=== PATIENT | female | born 1990 | race Caucasian/White ===

== ENCOUNTER 2020-07-26 18:49 | Emergency (ER) | payer MEDICAID, OTHER ==
[~2020-07-26] VITALS: Ht 172.7 cm; Wt 125.5 kg
[~2020-07-26 18:49] MED LIST: ALBU6.7H9 INH; METO-292 PO; PREN-125 PO
[2020-07-26 19:30] LABS: BASOPHILS % (AUTO) 0.4 % (0-1); EOSINOPHILS # (AUTO) 0.3 X10'3 (0-0.9); EOSINOPHILS % (AUTO) 2.5 % (0-6); HEMATOCRIT 45.4 % (35.0-45.0); HEMOGLOBIN 15.8 g/dl (12.0-16.0); LYMPHOCYTES # (AUTO) 1.9 X10'3 (1.1-4.8); LYMPHOCYTES % (AUTO) 18.8 % (21-51); MEAN CORPUSCULAR HEMOGLOBIN 31.2 PG (27.0-31.0); MEAN CORPUSCULAR HGB CONC 34.8 g/dL (33.0-36.5); MEAN CORPUSCULAR VOLUME 89.7 FL (78-98); MEAN PLATELET VOLUME 7.3 FL (7.4-10.4); MONOCYTES # (AUTO) 0.4 X10'3 (0-0.9); MONOCYTES % (AUTO) 3.9 % (2-12); NEUTROPHILS # (AUTO) 7.6 X10'3 (1.8-7.7); NEUTROPHILS % (AUTO) 74.4 % (42-75); PLATELET COUNT 325 X10'3 (140-440); RED BLOOD COUNT 5.06 X10'6 (4.20-5.60); RED CELL DISTRIBUTION WIDTH 13.5 % (11.5-14.5); WHITE BLOOD COUNT 10.3 X10'3 (4.5-11.0)
[2020-07-26 19:36] LABS: CLARITY,URINE CLEAR (Clear); COLOR,URINE YELLOW (Yellow); GLUCOSE, URINE NEGATIVE (Neg); KETONES,URINE NEGATIVE (Neg); LEUKOCYTE ESTERASE ,URINE NEGATIVE (Neg); NITRITES, URINE NEGATIVE (Neg); OCCULT BLOOD,URINE NEGATIVE (Neg); PROTEIN,URINE NEGATIVE (Neg); UA COLLECTION TYPE CLN CATCH MIDSTREAM; UROBILINOGEN,URINE 0.2 E.U/dL (0.2-1.0)
[2020-07-26 19:37] LABS: URINE HCG NEGATIVE (NEG)
[2020-07-26 19:43] LABS: ALANINE AMINOTRANSFERASE 100 U/L (12-78); ALBUMIN 3.9 G/DL (3.4-5.0); ALKALINE PHOSPHATASE 107 IU/L (46-116); ANION GAP 11 (8-16); ASPARTATE AMINO TRANSFERASE 47 U/L (10-37); BILIRUBIN,TOTAL 0.3 MG/DL (0.1-1.0); BLOOD UREA NITROGEN 10 MG/DL (7-18); BUN/CREATININE RATIO 13.2 (6.6-38.0); CALCIUM 9.5 MG/DL (8.5-10.1); CHLORIDE 105 MMOL/L (99-107); CREATININE 0.76 MG/DL (0.40-0.90); GLUCOSE 103 MG/DL (70-104); LIPASE 81 U/L (73-393); POTASSIUM 4.1 MMOL/L (3.5-5.1); SODIUM 143 MMOL/L (135-145); TOTAL CARBON DIOXIDE 26.9 MMOL/L (24-32); TOTAL PROTEIN 7.9 G/DL (6.4-8.2); eGFR 90 ML/MIN
[2020-07-26] MEDS ORDERED: ondansetron 4mg rapidly disintigrating tab PO ONE (20:20)
[2020-07-26] MEDS ORDERED: ketorolac trometh inj. 60 MG/2 ML VIAL IM ONE (20:20)
[2020-07-26] MEDS ORDERED: HYDROcodone/acetaminophen 5mg/325mg tablet PO ONE (20:20)
[2020-07-26 21:56] VITALS: BP 148/96
== END 2020-07-26 22:00 | disposition home or self-care (01) ==
LOC: ER 18:50
DX: R10.2 Pelvic and perineal pain (principal); R10.30 Lower abdominal pain, unspecified; M54.5 Low back pain; R11.2 Nausea with vomiting, unspecified; E78.00 Pure hypercholesterolemia, unspecified; I10 Essential (primary) hypertension; J45.909 Unspecified asthma, uncomplicated; K21.9 Gastro-esophageal reflux disease without esophagitis; G89.29 Other chronic pain; E66.01 Morbid (severe) obesity due to excess calories; Z68.41 Body mass index [BMI] 40.0-44.9, adult; Z87.11 Personal history of peptic ulcer disease; Z87.442 Personal history of urinary calculi; Z88.0 Allergy status to penicillin; Z88.2 Allergy status to sulfonamides; Z88.8 Allergy status to other drugs, medicaments and biological substances; Z91.040 Latex allergy status; Z79.899 Other long term (current) drug therapy
CPT/HCPCS: 36415; 76856; 80053; 81003; 81025; 83690; 85025; 93976; 96372; 99284; J1885

== ENCOUNTER 2020-08-21 18:59 | Emergency (ER) | payer MEDICAID, OTHER ==
[~2020-08-21] VITALS: Ht 172.7 cm; Wt 121.0 kg
[2020-08-21 19:02] VITALS: BP 151/91
[2020-08-21] MEDS ORDERED: acetaminophen 325mg tablet PO ONE (19:10)
[2020-08-21] MEDS ORDERED: TETanus/Pertussis (Acell)/Diphther VAC/PF (Tdap-Adult) 0.5ml syringe IMVAC ONE (19:10)
[2020-08-21] MEDS ORDERED: bacitracin 15gm ointment TP ONE (19:15)
[2020-08-21] MEDS ORDERED: BACI28OI9 TP (19:18)
== END 2020-08-21 19:36 | disposition home or self-care (01) ==
LOC: ER 19:00
DX: T24.102A Burn of first degree of unspecified site of left lower limb, except ankle and foot, initial encounter (principal); M79.605 Pain in left leg; E78.00 Pure hypercholesterolemia, unspecified; I10 Essential (primary) hypertension; J45.909 Unspecified asthma, uncomplicated; K21.9 Gastro-esophageal reflux disease without esophagitis; G89.29 Other chronic pain; F41.9 Anxiety disorder, unspecified; F32.9 Major depressive disorder, single episode, unspecified; Z20.3 Contact with and (suspected) exposure to rabies; Z87.11 Personal history of peptic ulcer disease; Z87.442 Personal history of urinary calculi; Z87.440 Personal history of urinary (tract) infections; Z88.0 Allergy status to penicillin; Z88.1 Allergy status to other antibiotic agents; Z88.8 Allergy status to other drugs, medicaments and biological substances; Z91.040 Latex allergy status; Z79.2 Long term (current) use of antibiotics; Z79.899 Other long term (current) drug therapy; X58.XXXA Exposure to other specified factors, initial encounter; Y93.89 Activity, other specified; Y92.89 Other specified places as the place of occurrence of the external cause; Y99.8 Other external cause status
CPT/HCPCS: 16020; 90471; 90715; 99283

== ENCOUNTER 2021-02-09 13:32 | Emergency (ER) | payer MEDICAID ==
[~2021-02-09] VITALS: Ht 172.7 cm; Wt 116.2 kg
[~2021-02-09 13:32] MED LIST changes: +BACI28OI9 TP
[2021-02-09 19:24] VITALS: BP 135/88
== END 2021-02-09 20:39 | disposition home or self-care (01) ==
LOC: ER 13:32
DX: S60.462A Insect bite (nonvenomous) of right middle finger, initial encounter (principal); G43.909 Migraine, unspecified, not intractable, without status migrainosus; E78.00 Pure hypercholesterolemia, unspecified; I10 Essential (primary) hypertension; J45.909 Unspecified asthma, uncomplicated; K21.9 Gastro-esophageal reflux disease without esophagitis; G89.29 Other chronic pain; F41.9 Anxiety disorder, unspecified; F32.9 Major depressive disorder, single episode, unspecified; Z87.11 Personal history of peptic ulcer disease; Z87.442 Personal history of urinary calculi; Z87.440 Personal history of urinary (tract) infections; Z91.040 Latex allergy status; Z88.0 Allergy status to penicillin; Z88.8 Allergy status to other drugs, medicaments and biological substances; Z88.1 Allergy status to other antibiotic agents; Z79.2 Long term (current) use of antibiotics; Z79.899 Other long term (current) drug therapy; W57.XXXA Bitten or stung by nonvenomous insect and other nonvenomous arthropods, initial encounter; Y93.89 Activity, other specified; Y92.89 Other specified places as the place of occurrence of the external cause; Y99.8 Other external cause status
CPT/HCPCS: 99281

== ENCOUNTER 2021-04-08 15:01 | Emergency (ER) | payer MEDICAID ==
[~2021-04-08] VITALS: Ht 172.7 cm; Wt 118.5 kg
[2021-04-08 15:08] VITALS: BP 158/99
== END 2021-04-08 23:03 | disposition left against medical advice (07) ==
LOC: ER 15:02
DX: R51.9 Headache, unspecified (principal); Z53.21 Procedure and treatment not carried out due to patient leaving prior to being seen by health care provider

== ENCOUNTER 2022-04-13 17:48 | Emergency (ER) | payer MEDICAID ==
[~2022-04-13 17:48] MED LIST changes: +ALBU6.7H14 INH; -ALBU6.7H9 INH
[2022-04-13 17:54] VITALS: BP 161/110
[2022-04-13] MEDS ORDERED: HYDR-3972 PO (20:07)
[2022-04-13] MEDS ORDERED: HYDROcodone/acetaminophen 10/325mg tab PO ONE (20:15)
== END 2022-04-13 20:56 | disposition home or self-care (01) ==
LOC: ER 17:48
DX: S83.005A Unspecified dislocation of left patella, initial encounter (principal); I10 Essential (primary) hypertension; J45.909 Unspecified asthma, uncomplicated; E78.00 Pure hypercholesterolemia, unspecified; G89.29 Other chronic pain; M54.9 Dorsalgia, unspecified; F41.9 Anxiety disorder, unspecified; Z91.040 Latex allergy status; Z88.0 Allergy status to penicillin; Z79.899 Other long term (current) drug therapy; W19.XXXA Unspecified fall, initial encounter; Y93.89 Activity, other specified; Y92.89 Other specified places as the place of occurrence of the external cause; Y99.8 Other external cause status
CPT/HCPCS: 29505; 73564; 99284

== ENCOUNTER 2023-02-20 11:50 | Emergency (ER) | payer MEDICAID ==
[~2023-02-20] VITALS: Ht 175.3 cm; Wt 120.4 kg
[2023-02-20 12:54] VITALS: PULSE 75; O2SAT 96
[2023-02-20] MEDS ORDERED: ketorolac tromethamine 15mg/ml inj. IM ONE (15:00)
[2023-02-20] MEDS ORDERED: CEPH-585 PO (15:04)
[2023-02-20] MEDS ORDERED: SULF1TAB49 PO (15:04)
[2023-02-20] MEDS ORDERED: ketorolac trometh. 30mg/ml inj. IM ONE (15:15)
[2023-02-20 15:25] VITALS: BP 138/101; TEMP 98.6
[2023-02-20 15:27] VITALS: RESP 20
== END 2023-02-20 15:28 | disposition home or self-care (01) ==
LOC: ER 11:51
DX: L03.116 Cellulitis of left lower limb (principal); E78.00 Pure hypercholesterolemia, unspecified; I10 Essential (primary) hypertension; J45.909 Unspecified asthma, uncomplicated; K21.9 Gastro-esophageal reflux disease without esophagitis; G89.29 Other chronic pain; F41.9 Anxiety disorder, unspecified; F32.9 Major depressive disorder, single episode, unspecified; Z87.442 Personal history of urinary calculi; Z88.0 Allergy status to penicillin; Z91.040 Latex allergy status; Z88.8 Allergy status to other drugs, medicaments and biological substances; Z79.899 Other long term (current) drug therapy
CPT/HCPCS: 96372; 99283; J1885

== ENCOUNTER 2024-08-25 16:47 | Emergency (ER) | payer MEDICAID ==
[~2024-08-25] VITALS: Ht 170.2 cm; Wt 107.1 kg
[2024-08-25] MEDS ORDERED: PRED20TA PO (18:24)
[2024-08-25] MEDS: dexamethasone sod phosphate 10mg/ml inj IM STA (18:30)
[2024-08-25 18:38] VITALS: BP 150/70; PULSE 80; RESP 18; TEMP 98.9; O2SAT 99
== END 2024-08-25 18:40 | disposition home or self-care (01) ==
LOC: ER 16:48
DX: L23.7 Allergic contact dermatitis due to plants, except food (principal); J45.909 Unspecified asthma, uncomplicated; I10 Essential (primary) hypertension; E78.00 Pure hypercholesterolemia, unspecified; K21.9 Gastro-esophageal reflux disease without esophagitis; F32.A Depression, unspecified; F41.9 Anxiety disorder, unspecified; Z88.0 Allergy status to penicillin; Z88.8 Allergy status to other drugs, medicaments and biological substances; Z88.1 Allergy status to other antibiotic agents
CPT/HCPCS: 96372; 99283; J1100

== ENCOUNTER 2024-09-25 17:49 | Emergency (ER) | payer MEDICAID ==
[~2024-09-25] VITALS: Ht 170.2 cm; Wt 105.7 kg
[2024-09-25 18:16] LABS: BILIRUBIN,URINE SMALL (Neg); CLARITY,URINE SLIGHTLY CLOUDY (Clear); COLOR,URINE YELLOW (Yellow); GLUCOSE, URINE NEGATIVE (Neg); KETONES,URINE 40 mg/dl (Neg); LEUKOCYTE ESTERASE ,URINE NEGATIVE (Neg); NITRITES, URINE NEGATIVE (Neg); OCCULT BLOOD,URINE NEGATIVE (Neg); PH,URINE 5.5 (4.8-8.0); PROTEIN,URINE 30 mg/dl (Neg); UROBILINOGEN,URINE 0.2 E.U/dL (0.2-1.0)
[2024-09-25 18:19] LABS: URINE HCG NEGATIVE (NEG)
[2024-09-25 18:30] LABS: UA COLLECTION TYPE CLN CATCH MIDSTREAM
[2024-09-25 18:31] LABS: WBC,URINE 0-4 /HPF (0-4)
[2024-09-25 18:32] LABS: AMORPHOUS URATES 2+; BACTERIA,URINE FEW /HPF (Neg); MUCUS STRANDS FEW /LPF (Neg); RBC,URINE NONE SEEN /HPF (0-2); SQUAMOUS EPITHELIAL CELL,UR FEW /LPF (FEW)
[2024-09-25] MEDS: dexamethasone sod phosphate 10mg/ml inj IM ONE (18:49)
[2024-09-25] MEDS ORDERED: butalbital 50MG/acetaminophen 300MG/caffeine 40MG (Fioricet) CAPSULE PO ONE (19:00)
[2024-09-25] MEDS: butalbital 50MG/acetaminophen 300MG/caffeine 40MG (Fioricet) CAPSULE PO ONE (19:16)
[2024-09-25 19:20] VITALS: BP 130/96; PULSE 90; RESP 16; TEMP 98.2; O2SAT 99
== END 2024-09-25 19:23 | disposition home or self-care (01) ==
LOC: ER 17:49
DX: L23.7 Allergic contact dermatitis due to plants, except food (principal); R51.9 Headache, unspecified; M62.830 Muscle spasm of back; J45.909 Unspecified asthma, uncomplicated; I10 Essential (primary) hypertension; E78.00 Pure hypercholesterolemia, unspecified; G89.29 Other chronic pain; M54.9 Dorsalgia, unspecified; K21.9 Gastro-esophageal reflux disease without esophagitis; F41.9 Anxiety disorder, unspecified; F32.A Depression, unspecified; Z88.0 Allergy status to penicillin; Z88.1 Allergy status to other antibiotic agents; Z88.8 Allergy status to other drugs, medicaments and biological substances; Z91.040 Latex allergy status; Z79.899 Other long term (current) drug therapy; Z87.442 Personal history of urinary calculi
CPT/HCPCS: 81001; 81025; 96372; 99283; J1100

== ENCOUNTER 2024-09-26 04:33 | Emergency (ER) | payer MEDICAID ==
[~2024-09-26] VITALS: Ht 170.2 cm; Wt 100.0 kg
[2024-09-26 04:36] VITALS: BP 164/113; PULSE 81; RESP 18; TEMP 98.5; O2SAT 100
[2024-09-26] MEDS: ondansetron 4mg rapidly disintigrating tab PO ONE ×2 (04:45→07:46)
[2024-09-26] MEDS: ketorolac trometh 30MG/ML vial 30 MG/ML VIAL IM ONE (07:48)
[2024-09-26 07:50] LABS: URINE HCG NEGATIVE (NEG)
[2024-09-26 07:51] LABS: BILIRUBIN,URINE MODERATE (Neg); CLARITY,URINE CLOUDY (Clear); COLOR,URINE YELLOW (Yellow); GLUCOSE, URINE NEGATIVE (Neg); KETONES,URINE >=80 mg/dl (Neg); LEUKOCYTE ESTERASE ,URINE NEGATIVE (Neg); NITRITES, URINE NEGATIVE (Neg); OCCULT BLOOD,URINE NEGATIVE (Neg); PROTEIN,URINE 30 mg/dl (Neg); UROBILINOGEN,URINE 0.2 E.U/dL (0.2-1.0)
[2024-09-26 07:58] LABS: UA COLLECTION TYPE NON-SPECIFIED
[2024-09-26 08:07] LABS: BACTERIA,URINE FEW /HPF (Neg); MUCUS STRANDS MODERATE /LPF (Neg); RBC,URINE NONE SEEN /HPF (0-2); SQUAMOUS EPITHELIAL CELL,UR MANY /LPF (FEW); WBC,URINE 0-4 /HPF (0-4)
== END 2024-09-26 09:52 | disposition home or self-care (01) ==
LOC: ER 04:34
DX: R51.9 Headache, unspecified (principal); I10 Essential (primary) hypertension; J45.909 Unspecified asthma, uncomplicated; E78.00 Pure hypercholesterolemia, unspecified; G89.29 Other chronic pain; M54.9 Dorsalgia, unspecified; F41.9 Anxiety disorder, unspecified; F32.A Depression, unspecified; K21.9 Gastro-esophageal reflux disease without esophagitis; Z88.8 Allergy status to other drugs, medicaments and biological substances; Z88.0 Allergy status to penicillin; Z91.040 Latex allergy status; Z79.899 Other long term (current) drug therapy; Z87.442 Personal history of urinary calculi
CPT/HCPCS: 81001; 81025; 96372; 99283; J1885

== ENCOUNTER 2024-10-04 20:55 | Emergency (ER) | payer MEDICAID ==
[~2024-10-04] VITALS: Ht 170.2 cm; Wt 95.6 kg
[2024-10-04] MEDS ORDERED: ketorolac trometh 15mg/ml vial 15 MG/ML ML IM ONE (22:10)
[2024-10-04] MEDS: ketorolac trometh 30MG/ML vial 30 MG/ML VIAL IM ONE (22:20)
[2024-10-04] MEDS: diazepam 5mg tablet PO ONE (22:20)
[2024-10-04 22:21] LABS: URINE HCG NEGATIVE (NEG)
[2024-10-04 23:36] VITALS: BP 165/80; PULSE 86; RESP 18; TEMP 98.6; O2SAT 99
== END 2024-10-04 23:37 | disposition home or self-care (01) ==
LOC: ER 20:56
DX: R51.9 Headache, unspecified (principal); M79.7 Fibromyalgia; F41.9 Anxiety disorder, unspecified; E78.00 Pure hypercholesterolemia, unspecified; I10 Essential (primary) hypertension; J45.909 Unspecified asthma, uncomplicated; F32.A Depression, unspecified; K21.9 Gastro-esophageal reflux disease without esophagitis; F17.210 Nicotine dependence, cigarettes, uncomplicated; G89.29 Other chronic pain; M54.9 Dorsalgia, unspecified; Z88.0 Allergy status to penicillin; Z88.1 Allergy status to other antibiotic agents; Z88.8 Allergy status to other drugs, medicaments and biological substances; Z91.040 Latex allergy status; Z79.899 Other long term (current) drug therapy; Z87.442 Personal history of urinary calculi
CPT/HCPCS: 81025; 96372; 99283; J1885

== ENCOUNTER 2024-10-16 22:05 | Emergency (ER) | payer MEDICAID ==
[~2024-10-16] VITALS: Ht 177.8 cm; Wt 106.6 kg
--- NOTE | 2024-10-16 22:09 | Physician Documentation ---
History of Present Illness ~ Stated Complaint: CHEST PAIN Time Seen by MD: 22:08 Primary Medical Doctor: ROSALBA GUZMÁN 33-year-old female with a history of complicated migraines and reported anxiety who presents with a headache and chest pain She tells me that she was feeling normal this morning. She went to the car show and was outside all day. She then developed multiple symptoms including a headache, photophobia, nausea, and central chest pressure. Some of this feels similar to the previous migraines. She has not take any medications, states that she normally just takes ibuprofen. She denies any significant shortness of breath. She denies any significant heart history. She arrives by EMS, who reports normal vitals and normal heart racing. They did give nitroglycerin, which seemed to make her headache worse. Medication Reconciliation Allergies: Coded Allergies: latex (Verified Allergy, Mild, itchy, 09/26/24) Penicillins (Unverified Allergy, Unknown, 09/26/24) diphenhydramine HCl (Unverified Allergy, Unknown, 09/26/24) doxycycline (Verified Allergy, Unknown, 09/26/24) Uncoded Allergies: MANGOS (Allergy, Mild, rash, 12/04/14) Scheduled Albuterol Sulfate (Proventil Hfa), 2 PUFFS INH Q6H Bacitracin/Pramoxine/Aloe Vera (Bacitracin Plus Ointment), 28 GM TP BID Metoclopramide HCl (Reglan), Unknown Dose PO DAILY, (Reported) Vit37/Iron/Folic Acid (Prenata Chewable Tablet), 1 EACH PO DAILY, (Reported) Past Medical History Past Medical History: High Cholesterol, Hypertension, Asthma, Constipation, GERD, Peptic Ulcer Disease, Kidney Stones, UTI, Chronic Back Pain, Anxiety, Depression Past Surgical History: no surgical history Other Past Family History: Asthma, Anxiety, Cardiac "Issues" Alcohol Use: None Drug Use: none Lives with: Family Lives In: Home Occupation: student Review of Systems Constitutional: Denies: fever Respiratory: Reports: cough; Denies: shortness of breath Gastrointestinal: Reports: nausea; Denies: vomiting Neurological: Reports: headache Physical Exam Physical Exam General: This is a nontoxic-appearing young female lying in bed with her eyes closed HEENT: Atraumatic, pupils are equal, oropharynx is moist Heart: Mild tachycardic, appears regular Lungs: Clear breath sounds bilateral, normal work of breathing, normal oxygen saturation on room air Abdomen: Soft, nondistended, nontender all quadrants Extremities: Warm and well-perfused Neuro: Alert and oriented, no focal deficits Psychiatric: Appears mildly anxious but is cooperative with exam Progress Results/Orders Results/Orders Orders - BEREKET GAONA MD Chest,Single View (10/16/24 22:12) Monitor (10/16/24 22:12) Saline Lock (10/16/24 22:12) Oxygen (10/16/24 22:12) Completed Orders - BEREKET GAONA MD Chest,Single View (10/16/24 22:12) Cbc/Diff (10/16/24 22:12) PBNP (10/16/24 22:12) Electrocardiogram (10/16/24 22:12) CMP (10/16/24 22:12) Hs Troponin I W Calculations (10/16/24 22:12) Ketorolac Trometh 15mg/Ml Vial (Toradol (10/16/24 22:15) Normal Saline 1000ml (Sodium Chloride 10 (10/16/24 22:15) Diazepam Inj (Valium Inj) (10/16/24 22:15) Medications Received in ER Medications (Trade) Dose Ordered Sig/Gloria Route PRN Reason Start Time Stop Time Status Last Admin Dose Admin Sodium Chloride 1,000 ml @ 1,000 mls/hr ONCE ONCE IV 10/16/24 22:15 10/16/24 23:14 DC 10/16/24 22:33 1,000 MLS/HR (Valium inj) 5 mg ONCE ONCE IV 10/16/24 22:15 10/16/24 22:19 DC 10/16/24 22:33 5 MG Vital Signs 10/16/24 10/16/24 10/16/24 10/16/24 22:07 22:13 22:13 22:19 Temp 98.4 98.4 Pulse 89 99 Resp 20 20 18 B/P (MAP) 165/97 168/100 (122) Pulse Ox 99 99 99 O2 Delivery Room Air* O2 Flow Rate 0 0 0 FiO2 21 21 10/16/24 10/16/24 10/17/24 22:34 23:44 00:56 Temp 98.2 Pulse 68 67 Resp 20 14 16 B/P (MAP) 162/94 (116) 147/81 Pulse Ox 99 100 O2 Flow Rate 0 FiO2 21 Laboratory Tests Test 10/16/24 22:44 White Blood Count 7.1 Red Blood Count 4.41 Hemoglobin 13.8 Hematocrit 39.6 Mean Corpuscular Volume 89.7 Mean Corpuscular Hemoglobin 31.4 H Mean Corpuscular Hemoglobin Concent 35.0 Red Cell Distribution Width 13.7 Platelet Count 280 Mean Platelet Volume 7.1 L Neutrophils (%) (Auto) 76.4 H Lymphocytes (%) (Auto) 19.1 L Monocytes (%) (Auto) 4.2 Eosinophils (%) (Auto) 0.1 Basophils (%) (Auto) 0.2 Neutrophils # (Auto) 5.4 Lymphocytes # (Auto) 1.3 Monocytes # (Auto) 0.3 Eosinophils # (Auto) 0.0 Basophils # (Auto) 0.0 CBC Comment Sodium Level 141 Potassium Level 3.3 L Chloride Level 107 Carbon Dioxide Level 25.9 Anion Gap 8 Blood Urea Nitrogen 7 Creatinine 0.58 Estimated GFR/1.73 m2 > 90 BUN/Creatinine Ratio 12.1 Glucose Level 101 Calcium Level 8.5 Total Bilirubin 0.5 Aspartate Amino Transf (AST/SGOT) 17 Alanine Aminotransferase (ALT/SGPT) 32 Alkaline Phosphatase 93 Troponin I High Sensitivity 8 Pro-B-Type Natriuretic Peptide 134 H Total Protein 6.5 Albumin 3.4 Globulin 3.1 Albumin/Globulin Ratio 1.1 Chemistry Comments EKG/XRAY/CT/US/VASC/MRI EKG : Additional Comment I personally interpreted the EKG and this shows: Sinus rhythm, rate 79, QTC 445, no STEMI or acute ischemic changes Chest X-Ray : Additional Comments I personally reviewed the x-ray, and it shows: No consolidation, normal mediastinum, no significant pulmonary edema Heart Score: Heart Score Response (Comments) Value History N/A 0 EKG Repolarization Disturb 1 Age <45 0 Risk Factors No known risk factors 0 Troponin Normal limit 0 Total 1 Medical Decision Making Differential Dx:Considerations: Include: ROGERS-Cluster, ROGERS-Migraine, ROGERS-Hypertensi ve Additional Comment Chest pain differential includes ACS, PE, costochondritis, reflux Assessment The patient presents with a headache and chest pain. Per her history and exam, this all seems consistent with her chronic migraine type headaches in the past. Her workup was unremarkable including no evidence of ACS. She was given a migraine cocktail with good resolution of her symptoms including her chest pain. I doubt PE, dissection, or other dangerous intra-thoracic process. She was no evidence of pneumonia or other dangerous infection. I do not feel the brain imaging is indicated given her recent reported ER visit with extensive workup for possible stroke and with normal brain imaging at that time. Given her rapid improvement with a migraine cocktail, I do not feel that she requires admission, and she will be discharged with ongoing outpatient management. Departure Time of Disposition: 00:44 Disposition: 01 HOME / SELF CARE / HOMELESS Impression: Primary Impression: Migraine Condition: Improved Discharge Instructions: Chronic Migraine Headache Additional Instructions: Your testing did not show any dangerous problems including your heart testing was normal. No evidence of a heart attack or other dangerous chest problem. Referrals: NO PRIMARY CARE PROVIDER (PCP) Education Educated: Patient Educated regarding: diagnosis, treatment, need for follow up Signature Scribe Signature: kezia Attestation: BEREKET Solano MD Oct 16, 2024 22:09
--- NOTE | 2024-10-16 22:16 | ELECTROCARDIOGRAPH REPORT ---
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 Mika Anthony Measurements Intervals [place] Rate: 79 P: 42 CO: 138 QRS: 31 QRSD: 94 T: 35 QT: 388 QTc: 445 Interpretive Statements Sinus rhythm Low voltage, precordial leads Electronically Signed On 10-19-2024 19:03:[address] Mika Anthony Please click the below link to view image of tracing.
[2024-10-16] MEDS: diazepam inj 5 MG/ML inj. IV ONE (22:33)
[2024-10-16] MEDS: normal saline 1000ml 1,000 ML IV ONE (22:33)
[2024-10-16] MEDS: ketorolac trometh 15mg/ml vial 15 MG/ML ML IV ONE (22:34)
--- NOTE | 2024-10-16 22:34 | RADIOLOGY REPORT ---
CHEST RADIOGRAPH Indication: CP Technique: Single frontal view of the chest was obtained Comparison: None FINDINGS: Lines and Tubes: None Lungs: Clear Pleura: No effusion. No pneumothorax. Cardiomediastinal contours: Unremarkable Bones: Unremarkable IMPRESSION: Clear lungs.
[2024-10-16 23:01] LABS: BASOPHILS % (AUTO) 0.2 % (0-1); EOSINOPHILS % (AUTO) 0.1 % (0-6); HEMATOCRIT 39.6 % (35.0-45.0); HEMOGLOBIN 13.8 g/dl (12.0-16.0); LYMPHOCYTES # (AUTO) 1.3 X10'3 (1.1-4.8); LYMPHOCYTES % (AUTO) 19.1 % (21-51); MEAN CORPUSCULAR HEMOGLOBIN 31.4 PG (27.0-31.0); MEAN CORPUSCULAR VOLUME 89.7 FL (78-98); MEAN PLATELET VOLUME 7.1 FL (7.4-10.4); MONOCYTES # (AUTO) 0.3 X10'3 (0-0.9); MONOCYTES % (AUTO) 4.2 % (2-12); NEUTROPHILS # (AUTO) 5.4 X10'3 (1.8-7.7); NEUTROPHILS % (AUTO) 76.4 % (42-75); PLATELET COUNT 280 X10'3 (140-440); RED BLOOD COUNT 4.41 X10'6 (4.20-5.60); RED CELL DISTRIBUTION WIDTH 13.7 % (11.5-14.5); WHITE BLOOD COUNT 7.1 X10'3 (4.5-11.0)
[2024-10-16 23:05] LABS: ALANINE AMINOTRANSFERASE 32 U/L (12-78); ALBUMIN 3.4 G/DL (3.4-5.0); ALBUMIN/GLOBULIN RATIO 1.1 (1.1-1.5); ALKALINE PHOSPHATASE 93 IU/L (46-116); ANION GAP 8 (8-16); ASPARTATE AMINO TRANSFERASE 17 U/L (10-37); BILIRUBIN,TOTAL 0.5 MG/DL (0.1-1.0); BLOOD UREA NITROGEN 7 MG/DL (7-18); BUN/CREATININE RATIO 12.1 (10.0-20.0); CALCIUM 8.5 MG/DL (8.5-10.1); CHLORIDE 107 MMOL/L (99-107); CREATININE 0.58 MG/DL (0.40-0.90); GLUCOSE 101 MG/DL (70-104); POTASSIUM 3.3 MMOL/L (3.5-5.1); SODIUM 141 MMOL/L (135-145); TOTAL CARBON DIOXIDE 25.9 MMOL/L (24-32); TOTAL PROTEIN 6.5 G/DL (6.4-8.2); eCRCL 149 ML/MIN; eGFR > 90 ML/MIN
[2024-10-16 23:12] LABS: PRO BRAIN NATRIURETIC PEPTIDE 134 PG/ML (0-125)
[2024-10-16 23:44] VITALS: TEMP 98.2
[2024-10-17 00:56] VITALS: BP 147/81; PULSE 67; RESP 16; O2SAT 100
== END 2024-10-17 00:58 | disposition home or self-care (01) ==
LOC: ER 22:05
DX: G43.909 Migraine, unspecified, not intractable, without status migrainosus (principal); F41.9 Anxiety disorder, unspecified; E78.00 Pure hypercholesterolemia, unspecified; I10 Essential (primary) hypertension; J45.909 Unspecified asthma, uncomplicated; F32.A Depression, unspecified; K21.9 Gastro-esophageal reflux disease without esophagitis; G89.29 Other chronic pain; M54.9 Dorsalgia, unspecified; Z86.73 Personal history of transient ischemic attack (TIA), and cerebral infarction without residual deficits; Z88.0 Allergy status to penicillin; Z88.1 Allergy status to other antibiotic agents; Z88.8 Allergy status to other drugs, medicaments and biological substances; Z91.040 Latex allergy status; Z79.899 Other long term (current) drug therapy; Z87.442 Personal history of urinary calculi
CPT/HCPCS: 36415; 71045; 80053; 83880; 84484; 85025; 93005; 96361; 96374; 99285; J3360; J7030

== ENCOUNTER 2025-01-23 21:10 | Emergency (ER) | payer MEDICAID ==
[~2025-01-23] VITALS: Ht 170.2 cm; Wt 109.5 kg
[2025-01-23 21:32] VITALS: TEMP 98.4
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
[2025-01-23 22:54] LABS: MEAN PLATELET VOLUME 7.2 FL (7.4-10.4); RED CELL DISTRIBUTION WIDTH 13.7 % (11.5-14.5)
[2025-01-23 22:59] LABS: CREATININE 0.83 MG/DL (0.40-0.90); TOTAL CARBON DIOXIDE 25.1 MMOL/L (24-32); eCRCL 93 ML/MIN; eGFR 79 ML/MIN
[2025-01-24 00:27] VITALS: BP 122/73; PULSE 61; RESP 16; O2SAT 98
--- NOTE | 2025-01-24 00:29 | RADIOLOGY REPORT ---
CLINICAL INDICATION: trauma TECHNIQUE: 2 views of the right shoulder DI SHOULDER, COMPLETE (MIN 2 VWS) Comparison: None FINDINGS/IMPRESSION: : Assessment limited by lack of orthogonal view. No evidence of acute fracture. Normal osseous mineral ization. No significant degenerative change. Focal hydroxyapatite deposition adjacent to the greater tuberosity at the expected location of the abarca praspinatus insertion, may represent calcific tendinosis. The imaged chest is unremarkable.
--- NOTE | 2025-01-24 08:59 | ELECTROCARDIOGRAPH REPORT ---
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 Mika Anthony Measurements Intervals [place] Rate: 74 P: 52 IN: 135 QRS: 48 QRSD: 90 T: 50 QT: 383 QTc: 425 Interpretive Statements Sinus rhythm Low voltage, precordial leads Electronically Signed On 01-24-2025 19:43:[address] Mika Anthony Please click the below link to view image of tracing.
== END 2025-01-24 00:36 | disposition home or self-care (01) ==
LOC: ER 21:11
DX: S40.011A Contusion of right shoulder, initial encounter (principal); R11.10 Vomiting, unspecified; R42 Dizziness and giddiness; I10 Essential (primary) hypertension; J45.909 Unspecified asthma, uncomplicated; E78.00 Pure hypercholesterolemia, unspecified; Z88.0 Allergy status to penicillin; Z88.1 Allergy status to other antibiotic agents; Z88.8 Allergy status to other drugs, medicaments and biological substances; Z91.040 Latex allergy status; Z87.11 Personal history of peptic ulcer disease; Z87.440 Personal history of urinary (tract) infections; W19.XXXA Unspecified fall, initial encounter; Y93.89 Activity, other specified; Y92.89 Other specified places as the place of occurrence of the external cause; Y99.8 Other external cause status
CPT/HCPCS: 36415; 73030; 80048; 82948; 83735; 85025; 93005; 99285; A4565

== ENCOUNTER 2025-04-12 09:57 | Emergency (ER) | payer MEDICAID ==
[~2025-04-12] VITALS: Ht 170.2 cm; Wt 114.1 kg
[2025-04-12] MEDS: triamcinolone acetonide 40mg/ml inj IM STA (12:04)
--- NOTE | 2025-04-12 12:47 | Physician Documentation ---
History of Present Illness ~ Chief Complaint: Allergic Reaction Stated Complaint: ALLERGIC REACTION Time Seen by MD: 10:15 Primary Medical Doctor: [facility] Mode of Arrival: Ambulatory HPI Patient is seen today with concern for a rash that patient feels might be an allergic reaction to something but she is unsure what. She denies any swelling of her lips or face or throat and denies any stridor or difficulty breathing or shortness of breath or chest pain or abdominal pain or nausea, vomiting, diarrhea. Patient has no other concern or complaint at this time. Medication Reconciliation Allergies: Coded Allergies: latex (Verified Allergy, Mild, itchy, 04/12/25) Penicillins (Unverified Allergy, Unknown, 04/12/25) diphenhydramine HCl (Unverified Allergy, Unknown, 04/12/25) doxycycline (Verified Allergy, Unknown, 04/12/25) Uncoded Allergies: MANGOS (Allergy, Mild, rash, 12/04/14) Scheduled Albuterol Sulfate (Proventil Hfa), 2 PUFFS INH Q6H Bacitracin/Pramoxine/Aloe Vera (Bacitracin Plus Ointment), 28 GM TP BID Metoclopramide HCl (Reglan), Unknown Dose PO DAILY, (Reported) Vit37/Iron/Folic Acid (Prenata Chewable Tablet), 1 EACH PO DAILY, (Reported) Past Medical History Past Medical History: High Cholesterol, Hypertension, Asthma, Constipation, GERD, Peptic Ulcer Disease, Kidney Stones, UTI, Chronic Back Pain, Anxiety, Depression Past Surgical History: no surgical history Other Past Family History: Asthma, Anxiety, Cardiac "Issues" Alcohol Use: None Drug Use: none Lives with: Family Lives In: Home Occupation: student Review of Systems Constitutional: Denies: chills, fever, weakness Eyes: Denies: pain, blurred vision ENT: Denies: ear pain, nose pain, throat pain, mouth pain Respiratory: Denies: cough, shortness of breath Cardiovascular: Denies: chest pain, palpitations Gastrointestinal: Denies: abdominal pain, nausea, vomiting Genitourinary: Denies: burning, dysuria Female Genitalia: Denies: vaginal discharge, pelvic pain Neurological: Denies: headache, dizziness Musculoskeletal: Denies: pain, swelling Integumentary: Denies: rash, lesions Allergic/Immunologic: Denies: hives, itching Hematologic/Lymphatic: Denies: no symptoms reported Psychiatric: Denies: depression, anxiety Physical Exam Vital Signs: Temperature: 97.6, Source: Oral, Heart Rate: 66, Respiratory Rate: 16, BP: 122/67, Pulse Oximetry: 96, Weight: 114.100 Oxygen Flow Rate: 0 Physical Exam General: Awake and Alert, no acute distress. HEENT: Conjunctiva pink, Sclera clear, Mucus Membranes moist. Neck: Supple without masses and tenderness. Resp: Unlabored. Lungs clear to auscultation bilaterally. Heart: Regular Rate and rhythm, normal S1 and S2 without murmur, rub or gallop. Extremities: No cyanosis,clubbing or edema. Skin: Patient on exam does have a wheal and flare type skin rash on her trunk and upper arms and legs. I do not appreciate any purulence or drainage or skin breakdown. Surrounding induration or erythema. Progress Results/Orders Results/Orders Completed Orders - IMANI [place] Triamcinolone Acet 40mg/Ml Inj (Kenalog- (04/12/25 11:51) Medications Received in ER Medications (Trade) Dose Ordered Sig/Gloria Route PRN Reason Start Time Stop Time Status Last Admin Dose Admin (Kenalog-40 inj) 80 mg ONCE STAT IM 04/12/25 11:51 04/12/25 11:52 DC 04/12/25 12:04 80 MG Vital Signs 04/12/25 04/12/25 04/12/25 04/12/25 10:03 11:00 12:00 12:02 Temp 97.6 Pulse 69 69 66 Resp 18 18 16 B/P (MAP) 166/102 128/79 (95) 122/67 (85) Pulse Ox 98 100 96 O2 Flow Rate 0 0 0 Medical Decision Making Additional information obtaine: N/A Findings Patient is seen today with concern for a rash that patient feels might be an allergic reaction to something but she is unsure what. She denies any swelling of her lips or face or throat and denies any stridor or difficulty breathing or shortness of breath or chest pain or abdominal pain or nausea, vomiting, diarrhea. Patient has no other concern or complaint at this time. Patient was given Kenalog 80 mg IM in the ED today. Patient will follow up with primary care in 1-3 days if no better as needed sooner. Return to ED with any worsening, concerning or changing symptoms. Differential Dx:Considerations: Include: Anaphylaxis, Angioedema, Bronchospasm, Contact dermatitis, Drug reaction, Latex allergy Departure Disposition: HOME / SELF CARE / HOMELESS Impression: Primary Impression: Acute allergic reaction Qualified Codes: T78.40XA - Allergy, unspecified, initial encounter Condition: Improved Discharge Instructions: Hives, Ihmk-[id number] Additional Instructions: Patient was given Kenalog 80 mg IM in the ED today. Patient will follow up with primary care in 1-3 days if no better as needed sooner. Return to ED with any worsening, concerning or changing symptoms. Referrals: NO PRIMARY CARE PROVIDER (PCP) Signature Scribe Signature: No scribe Attestation: No scribe IMANI [place] PAC Apr 12, 2025 12:47
[2025-04-12 13:47] VITALS: BP 152/95; PULSE 65; RESP 18; TEMP 97.6; O2SAT 100
== END 2025-04-12 13:45 | disposition home or self-care (01) ==
LOC: ER 09:57
DX: T78.40XA Allergy, unspecified, initial encounter (principal); E78.00 Pure hypercholesterolemia, unspecified; F41.9 Anxiety disorder, unspecified; F32.A Depression, unspecified; I10 Essential (primary) hypertension; K21.9 Gastro-esophageal reflux disease without esophagitis; J45.909 Unspecified asthma, uncomplicated; Z88.0 Allergy status to penicillin; Z88.1 Allergy status to other antibiotic agents; Z88.8 Allergy status to other drugs, medicaments and biological substances; Z91.040 Latex allergy status; X58.XXXA Exposure to other specified factors, initial encounter; Y93.89 Activity, other specified; Y92.89 Other specified places as the place of occurrence of the external cause; Y99.8 Other external cause status
CPT/HCPCS: 96372; 99285; J3301